=== PATIENT | female | born 1985 | race Caucasian/White ===

== ENCOUNTER 2017-11-10 13:42 | Inpatient (IN) | payer OTHER, SELFPAY ==
[2017-11-10 13:55] VITALS: BMI 26.7
[2017-11-10 14:02] VITALS: BMI 26.7
[2017-11-10 14:10] VITALS: BP 116/68; PULSE 70; RESP 16; TEMP 36.9
--- NOTE | 2017-11-10 14:12 | PCM.HP.STD ---
Problem List (1) Opioid abuse with intoxication with complication Status: Acute History of Present Illness Date of Admission: 11/10/17 Chief Complaint: OPIOID WITHDRAWAL The patient is a 32 year old F with a history of opiate abuse who presents with symptoms of opiate withdrawal and 4. To the [facility]. 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 She has been to detox twice last of which was 1 year ago and was clean but relapsed 5 months ago. She uses 1 g daily and snorts. She is used IV but has quit. She was tested for hepatitis C in the past but says she was told that her body had cleared it on its own. She was seen at [facility] done in [place] for that. Patient admits to fever and tremors, and also admits to chills, abdominal cramps but denies any diarrhea vomiting. Review of systems otherwise negative. She has been admitted to be managed for opiate detox. 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 Denies: Weakness, Fatigue Eyes: Denies: Blurred vision HEENT: Denies: Head Aches, Sinus Congestion, Sinus Drainage Cardiovascular: Denies: Chest Pain, Chest Tightness, Orthopnea, Palpitations Respiratory: Denies: Cough, Shortness of breath at rest, Sputum production Gastrointestinal: Reports: - - abdominal cramps. Denies: Abdominal Pain, Nausea, Vomiting Genitourinary: Denies: Dysuria Musculoskeletal: Denies: Joint Pain, Joint Tenderness Skin: Denies: Rash, Wounds Neurological: Denies: Numbness, Tingling, Focal weakness Psychiatric: Denies: Anxiety, Depression, Homicidal Ideations, Suicidal Ideations Hematologic/ Lymphatic: Denies: Easy Bruising, Easy Bleeding VTE Information - Inpt Only VTE Present on Admission: No VTE Mechan Device Prophylaxis: None VTE Pharm Prophylaxis ordered?: Yes Patient Problems: Active and Suspected Problems Opioid abuse with intoxication with complication (Acute) - Physical Exam General: Alert, Oriented x3, Cooperative, - - mild distress HEENT: Atraumatic, PERRLA, EOMI, Normocephalic Oral: Moist Mucosa Neck: Supple, No JVD, Negative Carotid Bruits Lungs: Clear to auscultation, Normal air movement Cardiovascular: Regular rate, Regular Rhythm, Normal S1, Normal S2, No murmurs Abdomen: Bowel Sounds Present, Soft, Non Tender, Non-Distended, No Hepato-splenomegaly Extremities: No clubbing, No cyanosis, No edema, Capillary Refill Less than 3 Seconds Skin: No rashes, No breakdown Musculoskeletal: No Tenderness to Palpation of Joints or Extremities Lymphatic: No Cervical, Supraclavicular, or Inguinal Adenopathy Neurological: Cranial nerves II-XII grossly intact, Motor Exam 5/5 strength throughout, - - tremors of UEs Psych/Mental Status: Normal Affect, Appropriate, Alert and oriented to time, place, person, mood and affect Vital Signs Temp Pulse Resp BP 98.4 F 70 16 116/68 11/10/17 14:10 11/10/17 14:10 11/10/17 14:10 11/10/17 14:10 Weight: 146 lb 2.664 oz Body Mass Index (BMI) 26.7 Assessment/Plan All Active Problems Opioid abuse with intoxication with complication (Acute) 32-year-old female with a history of opiate Dependence presenting with symptoms of opiate withdrawal and for opiate detox. 1. Opioid withdrawal using opiates for past 12 years; relapsed 5 monthsa go after going through detox last year CINA score was 20 on admission denies any history of benzodiazepine use admit to [facility] CBC, CMP, urine tox start opiate withdrawal protocol with buprenorphine monitor CINA score 2. History of hepatitis C: says she was seen at [facility] and told it cleared spontaneously. DVT prophylaxis: heparin Code status: full code patient counselled extensively about different types of code status, and differences between full code, DNRCC and DNRCCA. Patient elects to be full code. Total face to face time-16 mins Code Visit Inpatient E&M: 95811 Init Hosp L3 Procedures: 66208 Advncd Care Plan 30 Min
--- NOTE | 2017-11-10 14:16 | HP.PCM_ITS ---
Problem List (1) Opioid abuse with intoxication with complication Status: Acute History of Present Illness Date of Admission: 11/10/17 Chief Complaint: OPIOID WITHDRAWAL The patient is a 32 year old F with a history of opiate abuse who presents with symptoms of opiate withdrawal and 4. To [facility]. 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 She has been to detox twice last of which was 1 year ago and was clean but relapsed 5 months ago. She uses 1 g daily and snorts. She is used IV but has quit. She was tested for hepatitis C in the past but says she was told that her body had cleared it on its own. She was seen at [facility] done in [place] for that. Patient admits to fever and tremors, and also admits to chills, abdominal cramps but denies any diarrhea vomiting. Review of systems otherwise negative. She has been admitted to be managed for opiate detox. 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 Denies: Weakness, Fatigue Eyes: Denies: Blurred vision HEENT: Denies: Head Aches, Sinus Congestion, Sinus Drainage Cardiovascular: Denies: Chest Pain, Chest Tightness, Orthopnea, Palpitations Respiratory: Denies: Cough, Shortness of breath at rest, Sputum production Gastrointestinal: Reports: - - abdominal cramps. Denies: Abdominal Pain, Nausea, Vomiting Genitourinary: Denies: Dysuria Musculoskeletal: Denies: Joint Pain, Joint Tenderness Skin: Denies: Rash, Wounds Neurological: Denies: Numbness, Tingling, Focal weakness Psychiatric: Denies: Anxiety, Depression, Homicidal Ideations, Suicidal Ideations Hematologic/ Lymphatic: Denies: Easy Bruising, Easy Bleeding VTE Information - Inpt Only VTE Present on Admission: No VTE Mechan Device Prophylaxis: None VTE Pharm Prophylaxis ordered?: Yes Patient Problems: Active and Suspected Problems Opioid abuse with intoxication with complication (Acute) - Physical Exam General: Alert, Oriented x3, Cooperative, - - mild distress HEENT: Atraumatic, PERRLA, EOMI, Normocephalic Oral: Moist Mucosa Neck: Supple, No JVD, Negative Carotid Bruits Lungs: Clear to auscultation, Normal air movement Cardiovascular: Regular rate, Regular Rhythm, Normal S1, Normal S2, No murmurs Abdomen: Bowel Sounds Present, Soft, Non Tender, Non-Distended, No Hepato- splenomegaly Extremities: No clubbing, No cyanosis, No edema, Capillary Refill Less than 3 Seconds Skin: No rashes, No breakdown Musculoskeletal: No Tenderness to Palpation of Joints or Extremities Lymphatic: No Cervical, Supraclavicular, or Inguinal Adenopathy Neurological: Cranial nerves II-XII grossly intact, Motor Exam 5/5 strength throughout, - - tremors of UEs Psych/Mental Status: Normal Affect, Appropriate, Alert and oriented to time, place, person, mood and affect Vital Signs Temp Pulse Resp BP 98.4 F 70 16 116/68 11/10/17 14:10 11/10/17 14:10 11/10/17 14:10 11/10/17 14:10 Weight: 146 lb 2.664 oz Body Mass Index (BMI) 26.7 Assessment/Plan All Active Problems Opioid abuse with intoxication with complication (Acute) 32-year-old female with a history of opiate Dependence presenting with symptoms of opiate withdrawal and for opiate detox. 1. Opioid withdrawal * using opiates for past 12 years; relapsed 5 monthsa go after going through detox last year * CINA score was 20 on admission * denies any history of benzodiazepine use * admit to [facility] * CBC, CMP, urine tox * start opiate withdrawal protocol with buprenorphine * monitor CINA score * 2. History of hepatitis C: says she was seen at [facility] and told it cleared sp ontaneously. DVT prophylaxis: heparin Code status: full code * patient counselled extensively about different types of code status, and differences between full code, DNRCC and DNRCCA. Patient elects to be full code. Total face to face time-16 mins Code Visit Inpatient E&M: 42431 Init Hosp L3 Procedures: 26326 Advncd Care Plan 30 Min
[2017-11-10] MEDS: hydrOXYzine PAM 25 MG Capsule 50 MG PO (14:29)
[2017-11-10] MEDS: Dicyclomine 10 MG Capsule 20 MG PO ×2 (14:29→23:43)
[2017-11-10] MEDS: Methocarbamol 750 MG Tablet PO (14:29)
[2017-11-10] MEDS: Buprenorphine HCl 2 MG TAB.SUBL SL ×2 (14:32→21:58)
[2017-11-10 14:46] LABS: Absolute Lymphocyte Count 1.21 X10^3/ul (0.83-4.51); Absolute Neutrophil Count 2.4 X10^3/uL (2.0-7.7); Basophil# 0.04 X10^3/uL; Eosinophil# 0.04 X10^3/uL; Hematocrit 41.1 % (37-47); Hemoglobin 13.4 g/dl (12.0-15.0); Lymphocyte # 1.21 X10^3/ul (4.0); Lymphocyte % 31.6 % (19-41); Mean Corp Hgb Conc 32.6 g/gl (32-36); Mean Corpuscular Hgb 28.7 pg (27.0-32.0); Mean Platelet Vol. 9.2 fl (6.2-12.0); Monocyte# 0.13 X10^3/uL; Monocyte% 3.4 % (0-10); Neutrophil # 2.41 X10^3/uL (2.7-7.7); Platelet Count 288 K/mm3 (150-450); RBC Distribution Width CV 12.2 % (11.6-14.6); RBC Distribution Width SD 38.8 fl (35.1-43.9); Red Blood Count 4.67 M/mm3 (4.2-5.4); White Blood Count 3.8 K/mm3 (4.4-11.0)
[2017-11-10 15:00] LABS: POSITIVE COUNT NO; POSITIVE DIFFERENTIAL NO; POSITIVE MORPHOLOGY NO
[2017-11-10 15:10] LABS: ALB/GLOB Ratio 0.8 RATIO (0.9-2.4); AST(SGOT) 32 U/L (15-37); Alanine Aminotransfer ALT/SGPT 44 U/L (13-56); Albumin, Serum 3.6 g/dL (3.2-5.0); Alkaline Phosphatase 128 U/L (45-117); Anion Gap 2 (5-15); BUN 9 mg/dL (7-18); BUN/Creat Ratio 12.7 RATIO (10-20); Calcium,Total 9.1 mg/dL (8.5-10.1); Chloride 103 mmol/L (98-107); Creatinine, Serum 0.71 mg/dL (0.55-1.02); EST Glomerular Filtration Rate 101 mL/min (>60); Est Glom Filt Rate - Afr Amer 122 mL/min (>60); Estimated Creatinine Clearance 89.14 ml/min; Globulin 4.5 g/dL (2.2-4.2); Glucose 92 mg/dL (74-106); Potassium 3.9 mmol/L (3.5-5.1); Protein, Total 8.1 g/dL (6.4-8.2); Sodium Level 136 mmol/L (136-145)
[2017-11-10] MEDS: cloNIDine HCl 0.1 MG Tablet PO ×2 (16:12→19:38)
[2017-11-10 18:00] VITALS: BP 118/78; PULSE 56; RESP 16; TEMP 36.9
[2017-11-10] MEDS: Ibuprofen 600 MG Tablet PO (18:17)
[2017-11-10] MEDS: Pramipexole Di-HCl 0.25 MG Tablet PO (19:38)
[2017-11-10 20:59] LABS: Pregnancy, Serum, hCG Quali. NEGATIVE Negative (0-9 Nonpreg)
[2017-11-10 21:52] VITALS: BP 99/63; PULSE 55; RESP 16; TEMP 36.8
[2017-11-10] MEDS: traZODone 50 MG Tablet PO (21:58)
[2017-11-10 22:29] LABS: Amphetamine Urine VISTA NEGATIVE (<1000 ng/mL); Barbiturate Urine VISTA NEGATIVE (< 200 ng/mL); Benzodiazepine Urine VISTA NEGATIVE (< 200 ng/mL); Cocaine Urine VISTA NEGATIVE (< 300 ng/mL); Ecstacy Urine VISTA NEGATIVE (< 500 ng/mL); Methadone Urine VISTA NEGATIVE (< 300 ng/mL); PCP Urine VISTA NEGATIVE (< 25 ng/mL); THC Urine VISTA NEGATIVE (< 50 ng/mL); Vista UDS pH Range 7
[2017-11-10] MEDS: chlordiazePOXIDE 25 MG Capsule PO (23:43)
[2017-11-10] MEDS: QUEtiapine 25 MG Tablet PO (23:43)
[2017-11-11 02:00] VITALS: BP 102/53; PULSE 53; RESP 16; TEMP 37
[2017-11-11 06:00] VITALS: BP 102/53; PULSE 53; RESP 16; TEMP 37
[2017-11-11] MEDS: Buprenorphine HCl 2 MG TAB.SUBL SL ×3 (06:22→22:00)
[2017-11-11 06:25] LABS: Absolute Lymphocyte Count 1.24 X10^3/ul (0.83-4.51); Absolute Neutrophil Count 4.7 X10^3/uL (2.0-7.7); Basophil# 0.01 X10^3/uL; Basophil% 0.2 % (0-1); Eosinophil# 0.01 X10^3/uL; Eosinophils% 0.2 % (0-5); Hematocrit 39.9 % (37-47); Hemoglobin 13.3 g/dl (12.0-15.0); Lymphocyte # 1.24 X10^3/ul (4.0); Lymphocyte % 20.1 % (19-41); Mean Corp Hgb Conc 33.3 g/gl (32-36); Mean Corpuscular Hgb 28.5 pg (27.0-32.0); Mean Corpuscular Volume 85.4 fL (81-99); Monocyte# 0.25 X10^3/uL; Monocyte% 4.1 % (0-10); Neutrophil # 4.66 X10^3/uL (2.7-7.7); Neutrophil % 75.4 % (47-70); Platelet Count 321 K/mm3 (150-450); Red Blood Count 4.67 M/mm3 (4.2-5.4); White Blood Count 6.2 K/mm3 (4.4-11.0)
[2017-11-11 06:27] LABS: Anion Gap 12 (5-15); BUN 13 mg/dL (7-18); BUN/Creat Ratio 21.5 RATIO (10-20); Calcium,Total 9.5 mg/dL (8.5-10.1); Chloride 103 mmol/L (98-107); Creatinine, Serum 0.61 mg/dL (0.55-1.02); EST Glomerular Filtration Rate 121 mL/min (>60); Est Glom Filt Rate - Afr Amer 146 mL/min (>60); Estimated Creatinine Clearance 103.75 ml/min; Glucose 107 mg/dL (74-106); Potassium 3.5 mmol/L (3.5-5.1); Sodium Level 139 mmol/L (136-145)
[2017-11-11 06:29] LABS: POSITIVE COUNT NO; POSITIVE DIFFERENTIAL NO; POSITIVE MORPHOLOGY NO
[2017-11-11 09:06] VITALS: BP 111/56; PULSE 72; RESP 18; TEMP 37.4
[2017-11-11] MEDS: cloNIDine HCl 0.1 MG Tablet PO (09:18)
[2017-11-11] MEDS: Multivitamins,Therapeutic Tablet 1 TABLET PO (10:46)
--- NOTE | 2017-11-11 10:49 | PCM.PN.HOSP ---
Patient Problems: Active and Suspected Problems Opioid abuse with intoxication with complication (Acute) Subjective: Patient is sleepy and drowsy. Patient denies tremor muscle twitching. She could not answer my questions because she was very sleepy. Vitals/I&O's: Vital Signs Temp Pulse Resp BP 99.3 F H 72 18 111/56 L 11/11/17 09:06 11/11/17 09:06 11/11/17 09:06 11/11/17 09:06 Oxygen Delivery Method Room Air Weight: 146 lb 2.664 oz Body Mass Index (BMI) 26.7 Intake and Output for Last 24 Hours 11/09/17 11/10/17 11/11/17 23:59 23:59 23:59 Intake Total 540 / 540 Balance 540 / 540 General: Disoriented, Lethargic, - HEENT: Atraumatic, PERRLA, EOMI, Normocephalic Neck: Supple, No JVD, Negative Carotid Bruits Lungs: Clear to auscultation, Normal air movement Cardiovascular: Regular rate, Normal S1, Normal S2, No murmurs Abdomen: Bowel Sounds Present, Soft, Non Tender, Non-Distended Extremities: No edema, Capillary Refill Less than 3 Seconds Skin: No rashes, No breakdown Musculoskeletal: No Tenderness to Palpation of Joints or Extremities, Arthritic Changes Neurological: Cranial nerves II-XII grossly intact, Neuro grossly intact Psych/Mental Status: Normal Affect, Appropriate Laboratory Results 11/10/17 14:37: WBC 3.8 L, RBC 4.67, Hgb 13.4, Hct 41.1, MCV 88.0, MCH 28.7, MCHC 32.6, RDW 12.2, RDW Differential 38.8, Plt Count 288, MPV 9.2, Immature Gran % (Auto) 0.000, Neut % (Auto) 63.0, Lymph % (Auto) 31.6, [place] % (Auto) 3.4, Eos % (Auto) 1.0, Baso % (Auto) 1.0, Absolute Neuts (auto) 2.4, Absolute Lymphs (auto) 1.21, Total Counted Not Reportable 11/10/17 14:37: Sodium 136, Potassium 3.9, Chloride 103, Carbon Dioxide 31.0, Anion Gap 2 L, BUN 9, Creatinine 0.71, Estim Creat Clear Calc 89.14, Est GFR (MDRD) Af Amer 122, Est GFR (MDRD) Non-Af 101, BUN/Creatinine Ratio 12.7, Glucose 92, Calcium 9.1, Total Bilirubin 0.30, AST 32, ALT 44, Alkaline Phosphatase 128 H, Total Protein 8.1, Albumin 3.6, Globulin 4.5 H, Albumin/Globulin Ratio 0.8 L 11/10/17 20:23: Serum , Qual NEGATIVE 11/10/17 22:00: Urine Opiates Screen POSITIVE H, Urine Methadone Screen NEGATIVE, Ur Barbiturates Screen NEGATIVE, Ur Phencyclidine Scrn NEGATIVE, Ur Amphetamines Screen NEGATIVE, U Methamphetamin-MDMA NEGATIVE, U Benzodiazepines Scrn NEGATIVE, Urine Cocaine Screen NEGATIVE, U Cannabinoids Screen NEGATIVE, Ur Drug Screen Comment 11/11/17 05:35: WBC 6.2, RBC 4.67, Hgb 13.3, Hct 39.9, MCV 85.4, MCH 28.5, MCHC 33.3, RDW 12.0, RDW Differential 37.0, Plt Count 321, MPV 10.0, Immature Gran % (Auto) 0.000, Neut % (Auto) 75.4 H, Lymph % (Auto) 20.1, [place] % (Auto) 4.1, Eos % (Auto) 0.2, Baso % (Auto) 0.2, Absolute Neuts (auto) 4.7, Absolute Lymphs (auto) 1.24, Total Counted Not Reportable 11/11/17 05:35: Sodium 139, Potassium 3.5, Chloride 103, Carbon Dioxide 24.0, Anion Gap 12, BUN 13, Creatinine 0.61, Estim Creat Clear Calc 103.75, Est GFR (MDRD) Af Amer 146, Est GFR (MDRD) Non-Af 121, BUN/Creatinine Ratio 21.5 H, Glucose 107 H, Calcium 9.5 Current Medications Acetaminophen (Tylenol) 500 mg PO Q4H PRN PRN PRN Reason: Temp > 100.4 F Al Hydroxide/Mg Hydroxide (Mylanta Ii) 30 ml PO Q6H PRN PRN PRN Reason: dyspesia Bisacodyl (Dulcolax) 10 mg RECTAL DAILY PRN PRN Reason: Constipation Buprenorphine HCl (Buprenorphine Hcl) 4 mg SL Q8H MALENA; Taper Stop: 11/13/17 18:29 Last Admin: 11/11/17 06:22 Dose: 4 mg Chlordiazepoxide (Librium) 25 mg PO Q6H PRN PRN PRN Reason: Moderate-Severe Anxiety Last Admin: 11/10/17 23:43 Dose: 25 mg Clonidine (Catapres) 0.1 mg PO Q2H PRN PRN PRN Reason: Hot/Cold Sweats or Anxiety Last Admin: 11/11/17 09:18 Dose: 0.1 mg Dicyclomine HCl (Bentyl) 20 mg PO Q6H PRN PRN PRN Reason: Abdomnial Discomfort Last Admin: 11/10/17 23:43 Dose: 20 mg Hydroxyzine HCl (Vistaril Vial) 50 mg IM Q6H PRN PRN PRN Reason: Breakthrough Anxiety Hydroxyzine Pamoate (Vistaril Pamoate Capsule) 50 mg PO Q6H PRN PRN PRN Reason: Mild Anxiety Last Admin: 11/10/17 14:29 Dose: 50 mg Ibuprofen (Motrin) 600 mg PO Q8H PRN PRN Reason: PAIN Last Admin: 11/10/17 18:17 Dose: 600 mg Loperamide HCl (Imodium) 2 - 4 mg PO UD PRN PRN Reason: LOOSE STOOLS Magnesium Hydroxide (Milk Of Magnesia) 30 ml PO DAILY PRN PRN PRN Reason: Constipation Methocarbamol (Methocarbamol) 750 mg PO Q6H PRN PRN PRN Reason: Muscle Aches Last Admin: 11/10/17 14:29 Dose: 750 mg Multivitamins (Multivitamin) 1 tablet PO DAILY@0800 [facility] Last Admin: 11/11/17 10:46 Dose: 1 tablet Nicotine (Nicoderm Cq (Pbkc)) 21 mg TRANSDERM. DAILY [facility] Last Admin: 11/10/17 16:19 Dose: 21 mg Ondansetron HCl (Zofran Odt) 4 mg PO Q6H PRN PRN PRN Reason: NAUSEA Pramipexole Dihydrochloride (Mirapex) 0.25 mg PO Q12H PRN PRN PRN Reason: Restless Legs Last Admin: 11/10/17 19:38 Dose: 0.25 mg Quetiapine Fumarate (Seroquel) 25 mg PO Q6H PRN PRN PRN Reason: anxiety, agitation Last Admin: 11/10/17 23:43 Dose: 25 mg Senna (Senokot) 1 tablet PO QHS PRN PRN PRN Reason: Constipation Trazodone HCl (Desyrel) 50 mg PO QHS [facility] Last Admin: 11/10/17 21:58 Dose: 50 mg Medical Necessity - Tobacco Use Smoking Status: Current some day smoker Tobacco Use: Cigarettes Assessment/Plan All Active Problems Opioid abuse with intoxication with complication (Acute) This is a 32-year-old female with a history of opiate Dependence presenting with symptoms of opiate withdrawal and for opiate detox. 1. Opioid withdrawal admitted in [facility] 3: LFT shows AST ALT normal. Alkaline phosphatase 128. U tox positive of opioids. test negative [facility] protocol for opioid withdrawal monitor CINA score 2. History of hepatitis C: says she was seen at [facility] and told it cleared spontaneously. Follow-up as an outpatient. DVT prophylaxis: heparin Laboratory Results 11/10/17 14:37: WBC 3.8 L, RBC 4.67, Hgb 13.4, Hct 41.1, MCV 88.0, MCH 28.7, MCHC 32.6, RDW 12.2, RDW Differential 38.8, Plt Count 288, MPV 9.2, Immature Gran % (Auto) 0.000, Neut % (Auto) 63.0, Lymph % (Auto) 31.6, [place] % (Auto) 3.4, Eos % (Auto) 1.0, Baso % (Auto) 1.0, Absolute Neuts (auto) 2.4, Absolute Lymphs (auto) 1.21, Total Counted Not Reportable 11/10/17 14:37: Sodium 136, Potassium 3.9, Chloride 103, Carbon Dioxide 31.0, Anion Gap 2 L, BUN 9, Creatinine 0.71, Estim Creat Clear Calc 89.14, Est GFR (MDRD) Af Amer 122, Est GFR (MDRD) Non-Af 101, BUN/Creatinine Ratio 12.7, Glucose 92, Calcium 9.1, Total Bilirubin 0.30, AST 32, ALT 44, Alkaline Phosphatase 128 H, Total Protein 8.1, Albumin 3.6, Globulin 4.5 H, Albumin/Globulin Ratio 0.8 L 11/10/17 20:23: Serum , Qual NEGATIVE 11/10/17 22:00: Urine Opiates Screen POSITIVE H, Urine Methadone Screen NEGATIVE, Ur Barbiturates Screen NEGATIVE, Ur Phencyclidine Scrn NEGATIVE, Ur Amphetamines Screen NEGATIVE, U Methamphetamin-MDMA NEGATIVE, U Benzodiazepines Scrn NEGATIVE, Urine Cocaine Screen NEGATIVE, U Cannabinoids Screen NEGATIVE, Ur Drug Screen Comment 11/11/17 05:35: WBC 6.2, RBC 4.67, Hgb 13.3, Hct 39.9, MCV 85.4, MCH 28.5, MCHC 33.3, RDW 12.0, RDW Differential 37.0, Plt Count 321, MPV 10.0, Immature Gran % (Auto) 0.000, Neut % (Auto) 75.4 H, Lymph % (Auto) 20.1, [place] % (Auto) 4.1, Eos % (Auto) 0.2, Baso % (Auto) 0.2, Absolute Neuts (auto) 4.7, Absolute Lymphs (auto) 1.24, Total Counted Not Reportable 11/11/17 05:35: Sodium 139, Potassium 3.5, Chloride 103, Carbon Dioxide 24.0, Anion Gap 12, BUN 13, Creatinine 0.61, Estim Creat Clear Calc 103.75, Est GFR (MDRD) Af Amer 146, Est GFR (MDRD) Non-Af 121, BUN/Creatinine Ratio 21.5 H, Glucose 107 H, Calcium 9.5 Code Visit Inpatient E&M: 26934 Subs Hosp L2
--- NOTE | 2017-11-11 11:01 | PN_ITS ---
Patient Problems: Active and Suspected Problems Opioid abuse with intoxication with complication (Acute) Subjective: Patient is sleepy and drowsy. Patient denies tremor muscle twitching. She could not answer my questions because she was very sleepy. Vitals/I&O's: Vital Signs Temp Pulse Resp BP 99.3 F H 72 18 111/56 L 11/11/17 09:06 11/11/17 09:06 11/11/17 09:06 11/11/17 09:06 Oxygen Delivery Method Room Air Weight: 146 lb 2.664 oz Body Mass Index (BMI) 26.7 Intake and Output for Last 24 Hours 11/09/17 11/10/17 11/11/17 23:59 23:59 23:59 Intake Total 540 / 540 Balance 540 / 540 General: Disoriented, Lethargic, - HEENT: Atraumatic, PERRLA, EOMI, Normocephalic Neck: Supple, No JVD, Negative Carotid Bruits Lungs: Clear to auscultation, Normal air movement Cardiovascular: Regular rate, Normal S1, Normal S2, No murmurs Abdomen: Bowel Sounds Present, Soft, Non Tender, Non-Distended Extremities: No edema, Capillary Refill Less than 3 Seconds Skin: No rashes, No breakdown Musculoskeletal: No Tenderness to Palpation of Joints or Extremities, Arthritic Changes Neurological: Cranial nerves II-XII grossly intact, Neuro grossly intact Psych/Mental Status: Normal Affect, Appropriate Laboratory Results 11/10/17 14:37: WBC 3.8 L, RBC 4.67, Hgb 13.4, Hct 41.1, MCV 88.0, MCH 28.7, MCHC 32.6, RDW 12.2, RDW Differential 38.8, Plt Count 288, MPV 9.2, Immature Gran % (Auto) 0.000, Neut % (Auto) 63.0, Lymph % (Auto) 31.6, [place] % (Auto) 3.4, Eos % (Auto) 1.0, Baso % (Auto) 1.0, Absolute Neuts (auto) 2.4, Absolute Lymphs (auto) 1.21, Total Counted Not Reportable 11/10/17 14:37: Sodium 136, Potassium 3.9, Chloride 103, Carbon Dioxide 31.0, Anion Gap 2 L, BUN 9, Creatinine 0.71, Estim Creat Clear Calc 89.14, Est GFR (MDRD) Af Amer 122, Est GFR (MDRD) Non-Af 101, BUN/Creatinine Ratio 12.7, Glucose 92, Calcium 9.1, Total Bilirubin 0.30, AST 32, ALT 44, Alkaline Phosphatase 128 H, Total Protein 8.1, Albumin 3.6, Globulin 4.5 H, Albumin/Globulin Ratio 0.8 L 11/10/17 20:23: Serum , Qual NEGATIVE 11/10/17 22:00: Urine Opiates Screen POSITIVE H, Urine Methadone Screen NEGATIVE, Ur Barbiturates Screen NEGATIVE, Ur Phencyclidine Scrn NEGATIVE, Ur Amphetamines Screen NEGATIVE, U Methamphetamin-MDMA NEGATIVE, U Benzodiazepines Scrn NEGATIVE, Urine Cocaine Screen NEGATIVE, U Cannabinoids Screen NEGATIVE, Ur Drug Screen Comment 11/11/17 05:35: WBC 6.2, RBC 4.67, Hgb 13.3, Hct 39.9, MCV 85.4, MCH 28.5, MCHC 33.3, RDW 12.0, RDW Differential 37.0, Plt Count 321, MPV 10.0, Immature Gran % (Auto) 0.000, Neut % (Auto) 75.4 H, Lymph % (Auto) 20.1, [place] % (Auto) 4.1, Eos % (Auto) 0.2, Baso % (Auto) 0.2, Absolute Neuts (auto) 4.7, Absolute Lymphs (auto) 1.24, Total Counted Not Reportable 11/11/17 05:35: Sodium 139, Potassium 3.5, Chloride 103, Carbon Dioxide 24.0, Anion Gap 12, BUN 13, Creatinine 0.61, Estim Creat Clear Calc 103.75, Est GFR (MDRD) Af Amer 146, Est GFR (MDRD) Non-Af 121, BUN/Creatinine Ratio 21.5 H, Glucose 107 H, Calcium 9.5 Current Medications Acetaminophen (Tylenol) 500 mg PO Q4H PRN PRN PRN Reason: Temp > 100.4 F Al Hydroxide/Mg Hydroxide (Mylanta Ii) 30 ml PO Q6H PRN PRN PRN Reason: dyspesia Bisacodyl (Dulcolax) 10 mg RECTAL DAILY PRN PRN Reason: Constipation Buprenorphine HCl (Buprenorphine Hcl) 4 mg SL Q8H MALENA; Taper Stop: 11/13/17 18:29 Last Admin: 11/11/17 06:22 Dose: 4 mg Chlordiazepoxide (Librium) 25 mg PO Q6H PRN PRN PRN Reason: Moderate-Severe Anxiety Last Admin: 11/10/17 23:43 Dose: 25 mg Clonidine (Catapres) 0.1 mg PO Q2H PRN PRN PRN Reason: Hot/Cold Sweats or Anxiety Last Admin: 11/11/17 09:18 Dose: 0.1 mg Dicyclomine HCl (Bentyl) 20 mg PO Q6H PRN PRN PRN Reason: Abdomnial Discomfort Last Admin: 11/10/17 23:43 Dose: 20 mg Hydroxyzine HCl (Vistaril Vial) 50 mg IM Q6H PRN PRN PRN Reason: Breakthrough Anxiety Hydroxyzine Pamoate (Vistaril Pamoate Capsule) 50 mg PO Q6H PRN PRN PRN Reason: Mild Anxiety Last Admin: 11/10/17 14:29 Dose: 50 mg Ibuprofen (Motrin) 600 mg PO Q8H PRN PRN Reason: PAIN Last Admin: 11/10/17 18:17 Dose: 600 mg Loperamide HCl (Imodium) 2 - 4 mg PO UD PRN PRN Reason: LOOSE STOOLS Magnesium Hydroxide (Milk Of Magnesia) 30 ml PO DAILY PRN PRN PRN Reason: Constipation Methocarbamol (Methocarbamol) 750 mg PO Q6H PRN PRN PRN Reason: Muscle Aches Last Admin: 11/10/17 14:29 Dose: 750 mg Multivitamins (Multivitamin) 1 tablet PO DAILY@0800 [facility] Last Admin: 11/11/17 10:46 Dose: 1 tablet Nicotine (Nicoderm Cq (Pbkc)) 21 mg TRANSDERM. DAILY [facility] Last Admin: 11/10/17 16:19 Dose: 21 mg Ondansetron HCl (Zofran Odt) 4 mg PO Q6H PRN PRN PRN Reason: NAUSEA Pramipexole Dihydrochloride (Mirapex) 0.25 mg PO Q12H PRN PRN PRN Reason: Restless Legs Last Admin: 11/10/17 19:38 Dose: 0.25 mg Quetiapine Fumarate (Seroquel) 25 mg PO Q6H PRN PRN PRN Reason: anxiety, agitation Last Admin: 11/10/17 23:43 Dose: 25 mg Senna (Senokot) 1 tablet PO QHS PRN PRN PRN Reason: Constipation Trazodone HCl (Desyrel) 50 mg PO QHS [facility] Last Admin: 11/10/17 21:58 Dose: 50 mg Medical Necessity - Tobacco Use Smoking Status: Current some day smoker Tobacco Use: Cigarettes Assessment/Plan All Active Problems Opioid abuse with intoxication with complication (Acute) This is a 32-year-old female with a history of opiate Dependence presenting with symptoms of opiate withdrawal and for opiate detox. 1. Opioid withdrawal admitted in [facility] 3: LFT shows AST ALT normal. Alkaline phosphatase 128. U tox positive of opioids. test negative [facility] protocol for opioid withdrawal monitor CINA score 2. History of hepatitis C: says she was seen at [facility] and told it cleared spontaneously. Follow-up as an outpatient. DVT prophylaxis: heparin Laboratory Results 11/10/17 14:37: WBC 3.8 L, RBC 4.67, Hgb 13.4, Hct 41.1, MCV 88.0, MCH 28.7, MCHC 32.6, RDW 12.2, RDW Differential 38.8, Plt Count 288, MPV 9.2, Immature Gran % (Auto) 0.000, Neut % (Auto) 63.0, Lymph % (Auto) 31.6, [place] % (Auto) 3.4, Eos % (Auto) 1.0, Baso % (Auto) 1.0, Absolute Neuts (auto) 2.4, Absolute Lymphs (auto) 1.21, Total Counted Not Reportable 11/10/17 14:37: Sodium 136, Potassium 3.9, Chloride 103, Carbon Dioxide 31.0, Anion Gap 2 L, BUN 9, Creatinine 0.71, Estim Creat Clear Calc 89.14, Est GFR (MDRD) Af Amer 122, Est GFR (MDRD) Non-Af 101, BUN/Creatinine Ratio 12.7, Glucose 92, Calcium 9.1, Total Bilirubin 0.30, AST 32, ALT 44, Alkaline Phosphatase 128 H, Total Protein 8.1, Albumin 3.6, Globulin 4.5 H, Albumin/Globulin Ratio 0.8 L 11/10/17 20:23: Serum , Qual NEGATIVE 11/10/17 22:00: Urine Opiates Screen POSITIVE H, Urine Methadone Screen NEGA TIVE, Ur Barbiturates Screen NEGATIVE, Ur Phencyclidine Scrn NEGATIVE, Ur Amphetamines Screen NEGATIVE, U Methamphetamin-MDMA NEGATIVE, U Benzodiazepines Scrn NEGATIVE, Urine Cocaine Screen NEGATIVE, U Cannabinoids Screen NEGATIVE, Ur Drug Screen Comment 11/11/17 05:35: WBC 6.2, RBC 4.67, Hgb 13.3, Hct 39.9, MCV 85.4, MCH 28.5, MCHC 33.3, RDW 12.0, RDW Differential 37.0, Plt Count 321, MPV 10.0, Immature Gran % (Auto) 0.000, Neut % (Auto) 75.4 H, Lymph % (Auto) 20.1, [place] % (Auto) 4.1, Eos % (Auto) 0.2, Baso % (Auto) 0.2, Absolute Neuts (auto) 4.7, Absolute Lymphs (auto) 1.24, Total Counted Not Reportable 11/11/17 05:35: Sodium 139, Potassium 3.5, Chloride 103, Carbon Dioxide 24.0, Anion Gap 12, BUN 13, Creatinine 0.61, Estim Creat Clear Calc 103.75, Est GFR (MDRD) Af Amer 146, Est GFR (MDRD) Non-Af 121, BUN/Creatinine Ratio 21.5 H, Glucose 107 H, Calcium 9.5 Code Visit Inpatient E&M: 88314 Subs Hosp L2
[2017-11-11] MEDS: Dicyclomine 10 MG Capsule 20 MG PO (12:32)
[2017-11-11] MEDS: Ondansetron ODT 4 MG Tablet PO (12:32)
[2017-11-11] MEDS: QUEtiapine 25 MG Tablet PO ×2 (12:32→21:54)
[2017-11-11 12:37] VITALS: BP 116/65; PULSE 77; RESP 18; TEMP 36.8
[2017-11-11 15:50] VITALS: BP 102/55; PULSE 61; RESP 18; TEMP 37.3
[2017-11-11] MEDS: chlordiazePOXIDE 25 MG Capsule PO (16:12)
[2017-11-11] MEDS: Nicotine Polacrilex 2 MG GUM PO (17:50)
--- NOTE | 2017-11-11 19:35 | NURSING ---
reviewed and agree with charting by Natalia Byrd, student nurse
[2017-11-11 21:42] VITALS: BP 103/61; PULSE 56; RESP 16; TEMP 36.8
[2017-11-11] MEDS: Methocarbamol 750 MG Tablet PO (21:54)
[2017-11-11] MEDS: traZODone 50 MG Tablet PO (21:55)
[2017-11-12 06:33] VITALS: BP 106/62; PULSE 79; RESP 18; TEMP 36.8
[2017-11-12] MEDS: Buprenorphine HCl 2 MG TAB.SUBL SL (06:35)
[2017-11-12] MEDS: cloNIDine HCl 0.1 MG Tablet PO (06:37)
--- NOTE | 2017-11-12 10:12 | NURSING ---
Pt used call light and notified staff that she was going to be leaving and can't stay here any longer. This RN printed AMA form and entered pt's room to discuss with her. This RN asked pt if there was anything we could do to make her stay and pt denied. She states that she has a plan and that she cannot do this anymore. Pt had large duffle bag on wheels in room- asked pt if she would like wheelchair or assistance down- pt denied and states she could do on her own. This RN stayed with pt until elevator arrived and was given instructions on how to leave building. Pt verbalized understanding and denied further questions or needs.
--- NOTE | 2017-11-12 10:38 | DS.PCM_ITS ---
Discharge Date and Diagnosis Date of Admission: 11/10/17 Date of Discharge: 11/12/17 - Primary Discharge Diagnosis opiate withdrawal Hospital Course and Treatment Imaging Results: Laboratory Tests 11/10/17 11/10/17 11/10/17 14:37 14:37 20:23 WBC 3.8 L RBC 4.67 Hgb 13.4 Hct 41.1 MCV 88.0 MCH 28.7 MCHC 32.6 RDW 12.2 RDW Differential 38.8 Plt Count 288 MPV 9.2 Immature Gran % (Auto) 0.000 Neut % (Auto) 63.0 Lymph % (Auto) 31.6 [place] % (Auto) 3.4 Eos % (Auto) 1.0 Baso % (Auto) 1.0 Absolute Neuts (auto) 2.4 Absolute Lymphs (auto) 1.21 Total Counted Not Reportable Sodium 136 Potassium 3.9 Chloride 103 Carbon Dioxide 31.0 Anion Gap 2 L BUN 9 Creatinine 0.71 Estim Creat Clear Calc 89.14 Est GFR (MDRD) Af Amer 122 Est GFR (MDRD) Non-Af 101 BUN/Creatinine Ratio 12.7 Glucose 92 Calcium 9.1 Total Bilirubin 0.30 AST 32 ALT 44 Alkaline Phosphatase 128 H Total Protein 8.1 Albumin 3.6 Globulin 4.5 H Albumin/Globulin Ratio 0.8 L Serum , Qual NEGATIVE Urine Opiates Screen Urine Methadone Screen Ur Barbiturates Screen Ur Phencyclidine Scrn Ur Amphetamines Screen U Methamphetamin-MDMA U Benzodiazepines Scrn Urine Cocaine Screen U Cannabinoids Screen Ur Drug Screen Comment 11/10/17 11/11/17 11/11/17 22:00 05:35 05:35 WBC 6.2 RBC 4.67 Hgb 13.3 Hct 39.9 MCV 85.4 MCH 28.5 MCHC 33.3 RDW 12.0 RDW Differential 37.0 Plt Count 321 MPV 10.0 Immature Gran % (Auto) 0.000 Neut % (Auto) 75.4 H Lymph % (Auto) 20.1 [place] % (Auto) 4.1 Eos % (Auto) 0.2 Baso % (Auto) 0.2 Absolute Neuts (auto) 4.7 Absolute Lymphs (auto) 1.24 Total Counted Not Reportable Sodium 139 Potassium 3.5 Chloride 103 Carbon Dioxide 24.0 Anion Gap 12 BUN 13 Creatinine 0.61 Estim Creat Clear Calc 103.75 Est GFR (MDRD) Af Amer 146 Est GFR (MDRD) Non-Af 121 BUN/Creatinine Ratio 21.5 H Glucose 107 H Calcium 9.5 Total Bilirubin AST ALT Alkaline Phosphatase Total Protein Albumin Globulin Albumin/Globulin Ratio Serum , Qual Urine Opiates Screen POSITIVE H Urine Methadone Screen NEGATIVE Ur Barbiturates Screen NEGATIVE Ur Phencyclidine Scrn NEGATIVE Ur Amphetamines Screen NEGATIVE U Methamphetamin-MDMA NEGATIVE U Benzodiazepines Scrn NEGATIVE Urine Cocaine Screen NEGATIVE U Cannabinoids Screen NEGATIVE Ur Drug Screen Comment Operations: None Procedures: None Summary of Care Provided: The patient is a 32 year old F with a history of opiate abuse who was admitted with symptoms of opiate withdrawal to the [facility] program. 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 She had been to detox twice last of which was 1 year ago and was clean but relapsed 5 months ago. She used 1 g daily and snorted. He states that IV but had quit and was tested for hepatitis C in the past and still was positive but at spontaneously cleared on its own. Seen at [facility] in [place] for hepatitis. Patient was admitted and managed for acute opiate withdrawal and was started on buprenorphine withdrawal protocol. [employer] score was monitored. Patient remained stable. On 11/12/2017, patient inquired as to whether she can be discharged that day but was counseled that she would need to complete a 3-day detox course was advisable that she will be discharged on 11/13/2017. Patient however left AGAINST MEDICAL ADVICE after she had very views. Patient seen and examined prior to discharge. She had no complaints and felt well. She denied any fever or chills, any cough or chest pain, any shortness of breath, abdominal pain, any diarrhea vomiting. 12 point review of systems is otherwise negative. Labs and vitals reviewed. On examination: Vitals Vital Signs Height 5 ft 2 in Weight: 146 lb 2.664 oz Weight in Pounds 146.2 lbs Temperature 98.3 F Pulse Rate 79 Respiratory Rate 18 Blood Pressure 106/62 General: Alert, Oriented x3, Cooperative, - - mild distress HEENT: Atraumatic, PERRLA, EOMI, Normocephalic Oral: Moist Mucosa Neck: Supple, No JVD, Negative Carotid Bruits Lungs: Clear to auscultation, Normal air movement Cardiovascular: Regular rate, Regular Rhythm, Normal S1, Normal S2, No murmurs Abdomen: Bowel Sounds Present, Soft, Non Tender, Non-Distended, No Hepato-splenomegaly Extremities: No clubbing, No cyanosis, No edema, Capillary Refill Less than 3 Seconds Skin: No rashes, No breakdown Musculoskeletal: No Tenderness to Palpation of Joints or Extremities Lymphatic: No Cervical, Supraclavicular, or Inguinal Adenopathy Neurological: Cranial nerves II-XII grossly intact, Motor Exam 5/5 strength throughout, tremors have resolved. Psych/mental status: normal affect, appropriate, AO x 3 Patient left AMA on 11/12/17 Home Medications: Medications to take at Discharge Multivitamin [Daily Multiple Vitamin] 1 each PO DAILY 11/10/17 Primary Care Physician: Carlo Wise,Out of [Primary Care Provider] - Disposition: Against Medical Advice Minutes spent on discharge:: 35 Patient Condition:: Stable Medical Necessity - Tobacco Use Smoking Status: Current some day smoker Tobacco Use: Cigarettes Meaningful Use Info Meaningful Use Diagnoses (Choose all that apply): None applicable Code Visit Inpatient E&M: 87786 Disch Hosp
== END 2017-11-12 09:45 | disposition left against medical advice (07) | DRG 894 ==
PROVIDERS: Family Medicine; Admitting Provider Student in an Organized Health Care Education/Training Program; Referring Provider Student in an Organized Health Care Education/Training Program; Visit Provider Student in an Organized Health Care Education/Training Program
DX: F11.23 Opioid dependence with withdrawal (principal); F17.210 Nicotine dependence, cigarettes, uncomplicated
CPT/HCPCS: 36415; 80048; 80053; 80307; 84703; 85025; 97161